=== PATIENT | male | born 2000 | race Two or more races ===

== ENCOUNTER 2019-09-16 21:32 | Emergency (ER) | payer MEDICAID, SELFPAY ==
--- NOTE | 2019-09-16 21:28 | ECG_ITS ---
APPROVED REPORT Exam: Resting ECG HR:127 bpm ECG Measurements Heart Rate 127 AXES NV 154 P 74 QRSd 88 QRS 97 QT 296 T 16 QTc 430 <Conclusion> Sinus tachycardia Rightward axis Borderline ECG Electronically signed by : Preston Staley, 09/20/2019 21:04:56
[2019-09-16 21:36] VITALS: BP 149/109; PULSE 130; RESP 16; TEMP 36.4; O2SAT 100; BMI 25.1
--- NOTE | 2019-09-16 21:41 | XR_ITS ---
PROCEDURE: XR CHEST 2V CLINICAL HISTORY: Chest pain COMPARISON: No exams were available for comparison FINDINGS: The cardiomediastinal silhouette and pulmonary vascularity are within normal limits. No lobar consolidation or collapse is evident. There is increased density over the medial aspect of the right clavicle. This may only be due to summation artifact may be confirmed with follow-up. No acute bony abnormalities. IMPRESSION: No definite acute finding. Irregular opacity right upper lobe medially which may be due to summation artifact from the overlying rib and clavicle and may be confirmed with follow-up with slight different rotation Dictated by: Dagoberto De La Torre MD 09/17/2019 05:13 Electronically signed by Dagoberto De La Torre MD in [place] 09/17/2019 05:13
[2019-09-16 21:49] LABS: Basophils # 0.2 K/mm3 (0-0.2); Basophils % 2.3 % (0.1-2.0); Chloride 102 mmol/L (98-107); Eosinophils # 0.1 K/mm3 (0.0-0.4); Eosinophils % 0.7 % (0.1-12.0); Hematocrit 49.2 % (42.0-52.0); Lymphocytes # 2.8 K/mm3 (0.7-4.5); Lymphocytes % 26.1 % (10-50); Mean Corpuscular HGB Conc 34.5 g/dL (31.8-35.4); Mean Corpuscular Hemoglobin 31.7 pg (27.0-31.2); Mean Corpuscular Volume 91.9 fl (80-94); Mean Platelet Volume 7.8 fl (7.4-10.4); Monocytes # 0.7 K/mm3 (0.1-1.0); Monocytes % 6.6 % (1.7-9.3); Neutrophils # 6.8 K/mm3 (1.8-7.8); Neutrophils % 64.3 % (37.0-80.0); Platelet Count 321 K/mm3 (142-424); Red Blood Count 5.35 M/mm3 (4.60-6.20); Red Cell Distribution Width 12.4 % (11.5-17.5); Sodium 140 mmol/L (136-145); White Blood Count 10.6 K/mm3 (4.8-10.8)
[2019-09-16 21:52] LABS: Blood Urea Nitrogen 18 mg/dl (9-20); Calcium 9.4 mg/dl (8.4-10.2); Carbon Dioxide 30 mmol/L (22.0-30.0); Creatinine Clearance Estimated 135 mL/min (50-200); Estimated Glomerular Filt Rate 94 ml/min (>60); GFR (African American) 114 ML/MIN (>60); Glucose 62 mg/dl (74-100)
[2019-09-16 22:05] LABS: Troponin I < 0.01 ng/ml (0.00-0.034)
[2019-09-16 22:18] LABS: Creatine Kinase 55 U/L (55-170)
[2019-09-16 22:23] LABS: C-Reactive Protein 1.1 mg/L (0-4)
[2019-09-16 22:25] LABS: Microscopic, Urine URINE MICROSCOPIC (MICROSCOPIC)
[2019-09-16 22:29] LABS: Appearance,Urine CLEAR (Clear); Bilirubin,Urine Negative (Negative); Blood, Urine Negative (Negative); Color,Urine YELLOW (Yellow); Glucose,Urine (UA) Negative (Negative); Ketones,Urine Negative (Negative); Leukocyte Esterase,Urine Negative (Negative); Nitrate,Urine Negative (Negative); Protein,Urine Negative (Negative); Urobilinogen,Urine 0.2 EU/dl (0.2)
[2019-09-16 22:41] LABS: Barbiturates Screen,Urine Negative ng/ml (<200)
[2019-09-16 22:42] LABS: Amphetamine/Metha Screen,Urine Negative ng/ml (<1000); Benzodiazepines Screen,Urine Negative ng/ml (<200)
[2019-09-16 22:43] LABS: Erythrocyte Sedimentation Rate 13 mm/hr (0-15)
[2019-09-16 22:43] LABS: Cocaine Screen,Urine Negative ng/ml (<300)
[2019-09-16 22:44] LABS: Cannabinoid Screen,Urine Positive ng/ml (<50); Methadone Screen,Urine Negative ng/ml (<300)
[2019-09-16 22:45] LABS: Opiate Screen,Urine Negative ng/ml (<300)
[2019-09-16 22:46] LABS: Phencyclidine Screen,Urine Negative ng/ml (<25)
--- NOTE | 2019-09-16 22:56 | [facility].EDCP ---
ED Disposition Clinical Impression: Atypical chest pain Disposition: Home, Self-Care Condition on Discharge: Good Instructions: DI for Atypical Chest Pain Additional Instructions: see pcp for follow up Referrals: Kameron Boyce [Primary Care Provider] - - Critical Care Critical Care Time: No Attestation: On 09/16/19, the high probability of a clinically significant, sudden or life threatening deterioration of the following system(s) required my full and direct attention, intervention and personal management. The time I documented below is in addition to time spent performing reported procedures but includes the following listed in this critical care notation. Medical Decision Making - Medical Records Medical records reviewed: Yes: I reviewed the patient's medical records. - Greg Inquiry Pt receiving controlled substance: No Vital Signs: 09/16/19 21:36 Temperature 97.5 F L Temperature Source Oral Pulse Rate [Right Brachial] 130 H Respiratory Rate 16 Blood Pressure [Right Arm] 149/109 H Blood Pressure Mean [Right Arm] 122 Blood Pressure Source [Right Arm] Automatic Cuff Blood Pressure Position [Right Arm] Sitting 02 Sat by Pulse Oximetry 100 Oxygen Delivery Method Room Air - Lab Data Lab results reviewed: Yes: I reviewed the patient's lab results. Lab Results 09/16/19 21:30: WBC 10.6, RBC 5.35, Hgb 17.0, Hct 49.2, MCV 91.9, MCH 31.7 H, MCHC 34.5, RDW 12.4, Plt Count 321, MPV 7.8, Neut % (Auto) 64.3, Lymph % (Auto) 26.1, [place] % (Auto) 6.6, Eos % (Auto) 0.7, Baso % (Auto) 2.3 H, Neut # (Auto) 6.8, Lymph # (Auto) 2.8, [place] # (Auto) 0.7, Eos # (Auto) 0.1, Baso # (Auto) 0.2 09/16/19 21:30: Sodium 140, Potassium 4.0, Chloride 102, Carbon Dioxide 30, Anion Gap 12.0, BUN 18, Creatinine 1.00, Estimated Creat Clear 135, Estimated GFR 94, Est GFR ( Amer) 114, Glucose 62 L, Calcium 9.4, Troponin I < 0.01 09/16/19 21:30: ESR 13 09/16/19 21:30: Total Creatine Kinase 55, C-Reactive Protein 1.1 09/16/19 22:20: Urine Color Yellow, Urine Appearance Clear, Urine pH 7.0, Ur Specific [place] 1.020, Urine Protein Negative, Urine Glucose (UA) Negative, Urine Ketones Negative, Urine Blood Negative, Urine Nitrate Negative, Urine Bilirubin Negative, Urine Urobilinogen 0.2, Ur Leukocyte Esterase Negative 09/16/19 22:20: Urine Opiates Screen Negative, Urine Methadone Screen Negative, Ur Barbituates Screen Negative, Ur Phencyclidine Scrn Negative, Ur Amphetamines Screen Negative, U Benzodiazepines Scrn Negative, Urine Cocaine Screen Negative, U Marijuana (THC) Screen Positive H Result diagrams: 09/16/19 21:30 09/16/19 21:30 Orders (Tests/Meds): ED MEDICATIONS Generic Name Dose Route Start Last Admin Trade Name Freq PRN Reason Stop Dose Admin Sodium Chloride 1,000 mls @ 999 mls/hr 09/16/19 21:45 09/16/19 22:22 Sod Chlor 0.9% 1000ml Bag IV 09/16/19 22:45 999 mls/hr .Q1H1M FOSTER Administration Discontinued Medications Generic Name Dose Route Start Last Admin Trade Name Freq PRN Reason Stop Dose Admin Aspirin 324 mg 09/16/19 21:42 09/16/19 22:06 Aspirin 81mg Chewable Tablet PO 09/16/19 21:43 324 mg ONCE ONE Administration Ketorolac Tromethamine 30 mg 09/16/19 22:07 09/16/19 22:23 Toradol 30mg/Ml Vial IV 09/16/19 22:08 30 mg ONCE ONE Administration Methylprednisolone Sodium Succinate 125 mg 09/16/19 22:07 09/16/19 22:23 Solu-Medrol 125mg/2ml Vial IV 09/16/19 22:08 125 mg ONCE ONE Administration ORDERS Category Date Time Status XR chest 2V Stat Exams 09/16/19 21:41 Taken Troponin I Q3H Lab 09/17/19 00:45 Ordered Troponin I Q3H Lab 09/17/19 03:45 Ordered Urinalysis and Microscopic Stat Lab 09/16/19 22:20 Results - Radiology Data #1 Image(s): Chest Image Reviewed: Yes I reviewed the patient's radiology image Preliminary Findings: Normal/NAD - ECG Data Tracing #1 Arrhythmias present: sinus tach Ischemic changes: non-specific ST-T wa
[2019-09-16 23:00] VITALS: BP 141/91; PULSE 128; RESP 16; TEMP 36.4; O2SAT 99
[2019-09-16 23:17] LABS: Bacteria,Urine Trace /lpf; Squamous Epithelial Cell,Urine Occasional #/hpf (0-5); WBC,Urine Occasional #/hpf (0-3)
== END 2019-09-16 23:15 | disposition home or self-care (01) ==
PROVIDERS: Emergency Provider Emergency Medicine; PCP Internal Medicine
DX: R07.89 Other chest pain (principal); F12.10 Cannabis abuse, uncomplicated
CPT/HCPCS: 71046; 80048; 80305; 81001; 82550; 84484; 85025; 85651; 86140; 93005; 96365; 96375; 99283